=== PATIENT | male | born 1975 | race African-American/Black ===

== ENCOUNTER 2021-07-31 18:01 | Emergency (ER) | payer SELFPAY ==
--- NOTE | ~2021-07-31 | XR_ITS ---
EXAMINATION: XR abdomen obstructive series DATE: 07/31/2021 18:59 INDICATION: Constipation TECHNIQUE: Frontal supine and upright views of the abdomen were obtained. COMPARISON: None. FINDINGS: Moderate amount of stool in the cecum and ascending colon with small amount of more distal colonic st ool. No dilated gas-filled loops of bowel to suggest obstruction. No free intraperitoneal gas. Visu alized lung bases are clear. Heart size is normal. IMPRESSION: 1. No free intraperitoneal gas or dilated gas-filled loops of bowel to suggest obstruction. Reviewed, dictated and finalized at location A. SCIENCE TECHNICIAN
[2021-07-31 18:06] VITALS: BP 144/82; PULSE 68; RESP 14; TEMP 36.8; O2SAT 98
--- NOTE | 2021-07-31 20:01 | ED.GENADULT ---
HPI - General Adult General Chief complaint: Unspecified Stated complaint: constipation - no BM x 4 days Time Seen by Provider: 07/31/21 18:27 Source: patient Mode of arrival: ambulatory Limitations: no limitations History of Present Illness HPI narrative: Patient is 46 years old -[place] male. Came to the emergency room because have no bowel movement for the last 4 days, patient been using [id number] Dulcolax without result. Patient reports a new diagnosis of kidney stone 3 days ago, started on Pratt, Flomax, Toradol and Zofran. Patient is telling me that he is not eating well lately lately because he is busy at work, [employer] dedicated truck driver. Patient denies any fever, chills, nausea, vomiting or urinary symptoms. Left flank pain resolved, currently is insignificant compared to 3 days ago. Related Data Allergies Allergy/AdvReac Type Severity Reaction Status Date / Time No Known Allergies Allergy Verified 07/31/21 20:05 Review of Systems Review of Systems: CONSTITUTIONAL: Denies fever, chills, or sweats. EYES: Denies visual changes, redness, or discharge. ENT: Denies rhinorrhea, congestion, sore throat, or otalgia. CARDIOVASCULAR: Denies chest pain, palpitations, or edema. RESPIRATORY: Denies cough or dyspnea. GASTROINTESTINAL: Constipation GENITOURINARY: Denies dysuria or hematuria. SKIN: Denies rash or itching. MUSCULOSKELETAL: Denies back pain, joint pain, or myalgia. NEUROLOGIC: Denies headache, numbness, or weakness. PSYCHIATRIC: Denies anxiety or depression. Exam Narrative: General appearance: Well-developed, well-nourished Skin: Normal color Head: Normocephalic, nontraumatic Eyes: Clear conjunctiva ENT: Oropharynx normal, ears normal, nose normal Neck: Supple, nontender Chest and respiratory: Airway patent, no respiratory distress, no accessory muscle use Heart: Regular rate/rhythm Abdomen: Soft, nontender, no organomegaly, quiet bowel sounds Vascular: Normal peripheral pulses, normal capillary refill. Musculoskeletal: Normal range of motion, nontender back Neurologic: Alert and oriented ?3, METROLOGIST is normal as tested, no gross motor deficit Course Course Emergency Course: Stable Vital Signs Vital signs: Vital Signs Temperature 36.8 C 07/31/21 18:06 Pulse Rate 68 07/31/21 18:06 Respiratory Rate 14 07/31/21 18:06 Blood Pressure 144/82 H 07/31/21 18:06 Pulse Oximetry 98 07/31/21 18:06 Temperature 36.8 C 07/31/21 18:06 Pulse Rate 68 07/31/21 18:06 Respiratory Rate 18 07/31/21 20:20 Blood Pressure 144/82 H 07/31/21 18:06 Pulse Oximetry 98 07/31/21 20:20 Medical Decision Making Differential Diagnosis Differential Diagnosis: Constipation, Pratt induced constipation Vital Signs Vital Signs: Vital Signs Temperature 36.8 C 07/31/21 18:06 Pulse Rate 68 07/31/21 18:06 Respiratory Rate 14 07/31/21 18:06 Blood Pressure 144/82 H 07/31/21 18:06 Pulse Oximetry 98 07/31/21 18:06 Temperature 36.8 C 07/31/21 18:06 Pulse Rate 68 07/31/21 18:06 Respiratory Rate 18 07/31/21 20:20 Blood Pressure 144/82 H 07/31/21 18:06 Pulse Oximetry 98 07/31/21 20:20 Imaging Data Radiologist's impression: Impressions Abdomen X-Ray 07/31/21 19:03 IMPRESSION: 1. No free intraperitoneal gas or dilated gas-filled loops of bowel to suggest obstruction. Critical Care Time Critical Care Time Critical Care Time: No Discharge Plan Discharge Clinical Impression: Constipation Qualifiers: Constipation type: drug induced constipation Qualified Code(s): K59.03 - Drug induced constipation Patient Disposition: Home, Self-Care Condition: Stable Instruc
[2021-07-31 20:20] VITALS: RESP 18; O2SAT 98
== END 2021-07-31 20:20 | disposition home or self-care (01) ==
PROVIDERS: Emergency Provider Emergency Medicine
DX: K59.03 Drug induced constipation (principal); T50.995A Adverse effect of other drugs, medicaments and biological substances, initial encounter; N20.0 Calculus of kidney
CPT/HCPCS: 74019; 99283